=== PATIENT | female | born 1990 | race Two or more races ===

== ENCOUNTER → 2024-07-01 | Outpatient (CLI) | payer OTHER | END | disposition home or self-care (01) | LOC: PRENATAL 14:33 | PROVIDERS: ATTEND Obstetrics & Gynecology Maternal & Fetal Medicine | DX: O35.3XX0 Maternal care for (suspected) damage to fetus from viral disease in mother, not applicable or unspecified (principal); O44.00 Complete placenta previa NOS or without hemorrhage, unspecified trimester; Z3A.24 24 weeks gestation of pregnancy ==

== ENCOUNTER 2024-07-29 14:05 | Outpatient (CLI) | payer OTHER | END 2024-07-29 14:06 | disposition home or self-care (01) | LOC: PRENATAL 14:05 | PROVIDERS: ATTEND Obstetrics & Gynecology Maternal & Fetal Medicine | DX: O26.849 Uterine size-date discrepancy, unspecified trimester (principal); O36.8199 Decreased fetal movements, unspecified trimester, other fetus; O43.90 Unspecified placental disorder, unspecified trimester; Z3A.28 28 weeks gestation of pregnancy ==

== ENCOUNTER 2024-08-27 09:17 | Outpatient (CLI) | payer OTHER | END 2024-08-27 09:18 | disposition home or self-care (01) | LOC: PRENATAL 09:17 | PROVIDERS: ATTEND Obstetrics & Gynecology Maternal & Fetal Medicine | DX: O26.849 Uterine size-date discrepancy, unspecified trimester (principal); O36.8199 Decreased fetal movements, unspecified trimester, other fetus; O43.90 Unspecified placental disorder, unspecified trimester; Z3A.32 32 weeks gestation of pregnancy ==

== ENCOUNTER 2024-10-13 12:06 | Inpatient (IN) | payer OTHER ==
[2024-10-13] VITALS (8 sets, daily range): BP systolic 103–139; BP diastolic 62–74
[~2024-10-13] VITALS: Ht 165.1 cm; Wt 89.8 kg
[2024-10-13] MEDS ORDERED: CEFAZOLIN SODIUM 1,000 MG VIAL IV SCH (12:32)
[2024-10-13] MEDS ORDERED: RINGERS SOLUTION,LACTATED 1,000 ML IV SCH (12:45)
[2024-10-13] MEDS ORDERED: PRENATA CHEWAB1 EACH (12:46)
[2024-10-13 13:04] LABS: HEMATOCRIT 32.3 % (36.0-45.00); MEAN CELL VOLUME 79.2 fL (80.00-100.00); MEAN CORPUSCULAR HEMOGLOBIN 26.9 pg (27.00-32.0); PLATELET COUNT 182 K/uL (150-450); RED BLOOD COUNT 4.08 M/uL (4.00-6.00)
[2024-10-13 13:05] LABS: PH,URINE 5.5 (5.0-8.0); URINE APPEARANCE Cloudy; URINE BILIRRUBIN Negative (NEGATIVE); URINE BLOOD Large; URINE COLOR Yellow; URINE GLUCOSE Negative (NEGATIVE); URINE LEUKOCYTE Large; URINE NITRATE Negative; URINE UROBILINOGEN 0.2 E.U./dl
[2024-10-13 13:09] LABS: URINE CAST 1.76 uL (0.0-1.40); URINE EPITHELIAL CELLS 34.8 uL (0.0-38.8); URINE RBC 137.5 uL (0.0-20.8); URINE WBC 950.5 uL (0.0-23.2)
[2024-10-13 13:21] LABS: URINE BACTERIA > 9821.5 uL (0.0-1933); URINE KETONE 40 (NEGATIVE); URINE PROTEIN 100 (NEGATIVE)
[2024-10-13] MEDS ORDERED: MORPHINE SULFATE 4 MG/ML CARTRIDGE IV STA (16:08)
[2024-10-13] MEDS ORDERED: OXYTOCIN 500 ML IV ONE (16:15)
[2024-10-13] MEDS ORDERED: IBUprofen 400 MG TABLET PO PRN (18:00)
[2024-10-13] MEDS ORDERED: OXYTOCIN 10 UNITS/ML VIAL IM STA (18:15)
[2024-10-13] MEDS ORDERED: CHLORHEXIDINE GLUCONATE 120 ML BOTTLE TP SCH (18:15)
[2024-10-13] MEDS ORDERED: OXYTOCIN 1,000 ML IV SCH (18:15)
[2024-10-13] MEDS ORDERED: ERYTHROMYCIN BASE OPHT 1GM EACH TUBE OP ONE (18:45)
[2024-10-13 23:28] LABS: HEMATOCRIT 31.5 % (36.0-45.00); HEMOGLOBIN 10.7 g/dL (12.0-15.00); MEAN CORPUSCULAR HEMOGLOBIN 27.5 pg (27.00-32.0); PLATELET COUNT 174 K/uL (150-450); RED BLOOD COUNT 3.88 M/uL (4.00-6.00); RED CELL DISTRIBUTION WIDTH 14.9 % (11.5-14.5)
[2024-10-14 15:45] VITALS: BP 107/72
[2024-10-14 23:39] VITALS: BP 98/60
[2024-10-15 08:49] VITALS: BP 109/75
== END 2024-10-15 15:11 | disposition home or self-care (01) | DRG 807 ==
LOC: LDR 12:06 → OB/GYN 18:20
PROVIDERS: Obstetrics & Gynecology; ADMIT Obstetrics & Gynecology; ATTEND Obstetrics & Gynecology
PROC: 10E0XZZ Delivery of Products of Conception, External Approach (ICD-10-PCS; principal; 2024-10-13)
PROC: 0HQ9XZZ Repair Perineum Skin, External Approach (ICD-10-PCS; 2024-10-13)
PROC: 4A1HXCZ Monitoring of Products of Conception, Cardiac Rate, External Approach (ICD-10-PCS; 2024-10-13)
DX: O70.0 First degree perineal laceration during delivery (principal); Z37.0 Single live birth; Z3A.39 39 weeks gestation of pregnancy; Z20.822 Contact with and (suspected) exposure to COVID-19